=== PATIENT | male | born 1995 | race Hispanic/Latino ===

== ENCOUNTER 2019-05-03 19:22 | Emergency (ER) | payer BC ==
[2019-05-03] MEDS ORDERED: Ketorolac Tromethamine 30 MG/ML VIAL ONE (19:42)
[2019-05-03] MEDS ORDERED: Morphine 4 MG/ML VIAL ONE (19:42)
[2019-05-03] MEDS ORDERED: Lidocaine 1% (PF) 30 ML VIAL ONE (20:01)
--- NOTE | 2019-05-03 20:03 | RAD ---
LEFT FEMUR TWO VIEWS: 05/03/19 HISTORY: Injury, left lower extremity pain. FINDINGS/IMPRESSION: The left femur appears intact. POS: [facility]
--- NOTE | 2019-05-03 20:03 | RAD ---
PORTABLE CHEST ONE VIEW: 05/03/19 at 7:36 p.m. HISTORY: Injury, chest pain. FINDINGS: The heart size is normal. The lungs are expanded without focal areas of consolidation, pneumothoraces or pleural effusions. IMPRESSION: No radiographic evidence of acute cardiopulmonary process. POS: [facility]
--- NOTE | 2019-05-03 20:04 | RAD ---
LEFT SHOULDER THREE VIEWS: 05/03/19 HISTORY: Injury, left shoulder pain. FINDINGS/IMPRESSION: No acute fracture or dislocation is identified. POS: [facility]
--- NOTE | 2019-05-03 20:05 | RAD ---
AP PELVIS: 05/03/19 HISTORY: Injury. Pelvic pain. Hip pain. FINDINGS/IMPRESSION: No acute fracture or dislocation is identified. POS: [facility]
[2019-05-03 20:06] LABS: #Basophils 0.1 thou/uL (0.0-0.2); #Eosinphils 0.2 thou/uL (0.0-0.7); #Monocytes 0.5 thou/uL (0.11-0.59); %Basophils 0.8 % (0.0-1.0); %Eosinophils 1.5 % (0.0-10.0); %Lymphocytes 18.9 % (21.0-51.0); %Monocytes 4.3 % (0.0-10.0); %Neutrophils 74.6 % (42.0-75.0); Hemoglobin 17.4 g/dL (14.0-18.0); Mean Corpuscular HGB CONC 34.5 g/dL (32.0-36.0); Mean Corpuscular Hemoglobin 31.8 pg (27.0-31.0); Mean Corpuscular Volume 92.1 fL (78.0-98.0); Mean Platelet Volume 7.3 fL (7.4-10.4); Platelet Count 322 thou/uL (130-400); RBC Distribution Width 11.9 % (11.5-14.5); Red Blood Cell (RBC) Count 5.48 mill/uL (4.70-6.10); White Blood Cell (WBC) Count 10.7 thou/uL (4.8-10.8)
--- NOTE | 2019-05-03 20:07 | RAD ---
LEFT HAND THREE VIEWS: 05/03/19 HISTORY: Injury, left hand pain. FINDINGS/IMPRESSION: There is a nondisplaced fracture involving the head of the proximal phalanx of the first digit/thumb with fracture line extending into the articular surface. No significant displacement seen. There is a dorsally displaced fracture involving the base of the distal phalanx of the little finger/ fifth digit with fracture line extending into the articular surface. There is a questionable fracture involving the base of the fifth metacarpal. Clinical correlation is recommended. POS: [facility]
[2019-05-03 20:24] LABS: ALT (SGPT) 13 U/L (8-55); AST (SGOT) 18 U/L (5-34); Albumin 4.6 g/dL (3.5-5.0); Alkaline Phosphatase 66 U/L (40-110); Anion Gap 12 mmol/L (10-20); BUN (Urea Nitrogen) 14 mg/dL (8.9-20.6); Bilirubin, Total 1.3 mg/dL (0.2-1.2); Calc. Creatinine Clearance 0 mL/min (70-130); Calcium 9.9 mg/dL (7.8-10.44); Carbon Dioxide 27 mmol/L (22-29); Chloride 104 mmol/L (98-107); Estimated GFR-MDRD 76; Globulin 2.7 g/dL (2.4-3.5); Glucose 125 mg/dL (70-105); Potassium 3.8 mmol/L (3.5-5.1); Protein, Total 7.3 g/dL (6.0-8.3); Sodium 139 mmol/L (136-145)
[2019-05-03 22:06] LABS: Bilirubin Negative (Negative); Blood, Urine 1+ (Negative); Clarity Turbid (Clear); Glucose, Urine (Dipstick) Normal (Negative); Leukocyte Negative Leu/uL (Negative); Nitrite Negative (Negative); Protein, Urine (Dipstick) 20 mg/dL (Neg-Trace); Squamous Epithelial 0-3 HPF (0-3); Urobilinogen Normal mg/dL (Less than 2)
[2019-05-03 22:14] LABS: Bacteria/HPF 1+ HPF (None Seen)
== END 2019-05-03 23:00 | disposition home or self-care (01) ==
LOC: ERS 19:22
DX: S62.617A Displaced fracture of proximal phalanx of left little finger, initial encounter for closed fracture (principal); S62.512A Displaced fracture of proximal phalanx of left thumb, initial encounter for closed fracture; S62.317A Displaced fracture of base of fifth metacarpal bone, left hand, initial encounter for closed fracture; V29.9XXA Motorcycle rider (driver) (passenger) injured in unspecified traffic accident, initial encounter
CPT/HCPCS: 29125; 36415; 71045; 72170; 80053; 81003; 81015; 85025; 96374; G0390; J1885; J2001; J2270